=== PATIENT | female | born 1965 ===

== ENCOUNTER 2017-04-23 22:05 | Emergency (ER) | payer OTHER ==
[~2017-04-23] VITALS: Ht 175.3 cm; Wt 70.3 kg
[2017-04-23 22:10] VITALS: Ht 175.3 cm; Wt 70.3 kg
[2017-04-24 00:34] VITALS: BP 151/70
== END 2017-04-24 00:34 | disposition home or self-care (01) ==
LOC: ED 22:05
DX: G89.29 Other chronic pain (principal); M54.5 Low back pain; I10 Essential (primary) hypertension; E11.9 Type 2 diabetes mellitus without complications
CPT/HCPCS: J2270; Q0162

== ENCOUNTER 2017-08-19 08:11 | Emergency (ER) | payer OTHER ==
[~2017-08-19] VITALS: Ht 175.3 cm; Wt 81.6 kg
[2017-08-19 08:21] VITALS: Ht 175.3 cm; Wt 81.6 kg
[2017-08-19 08:38] LABS: BASOPHIL % 0.6 % (0-2); PLATELET COUNT 366 x10^3mcL (130-400); RED CELL DISTRIBUTION WIDTH 15.3 % (11.5-14.5)
[2017-08-19 08:48] LABS: rbc morphology (normal/abnorm) ABNORMAL (NORMAL)
[2017-08-19 09:17] LABS: CALCIUM 9.1 mg/dL (8.5-10.1); CARBON DIOXIDE 24.8 mmol/L (21-32); CHLORIDE SERUM 106 mmol/L (98-107); CREATININE SERUM 0.7 mg/dL (0.6-1.0); GFR1 > 60 mL/min; GLUCOSE SERUM 98 mg/dL (74-106); POTASSIUM SERUM 3.8 mmol/L (3.5-5.1); SODIUM SERUM 141 mmol/L (136-145)
[2017-08-19 09:21] LABS: ALBUMIN 3.7 g/dL (3.4-5.0); ALKALINE PHOSPHATASE 79 U/L (46-116); ALT/SGPT 2 U/L (14-59); AST/SGOT 16 U/L (15-37); BILIRUBIN TOTAL 0.2 mg/dL (0.20-1.00); CHOLESTEROL 142 mg/dL (<200); LIPASE 159 IU/L (73-393); TOTAL PROTEIN, SERUM 7.1 g/dL (6.4-8.2); TRIGLYCERIDES 146 mg/dL (<150)
[2017-08-19 09:36] LABS: CHOLESTEROL/HDL RATIO 2.3; HDL CHOLESTEROL 61 mg/dL (40-60)
[2017-08-19 09:38] LABS: microscopic required? NO
[2017-08-19 09:50] LABS: T3 TOTAL 0.94 ng/mL
[2017-08-19 10:01] LABS: UA SPECIFIC GRAVITY 1.015 (1.005-1.035); urine erythrocyte NEGATIVE (NEGATIVE)
[2017-08-19 10:06] LABS: FREE T4 0.86 ng/dL (0.76-1.46); T4(THYROXINE) 6.1 ug/dL (4.7-13.3)
[2017-08-19 10:26] VITALS: BP 120/64
== END 2017-08-19 10:26 | disposition home or self-care (01) ==
LOC: ED 08:11
PROVIDERS: Specialist
DX: R10.30 Lower abdominal pain, unspecified (principal); R11.0 Nausea; I10 Essential (primary) hypertension; E11.9 Type 2 diabetes mellitus without complications
CPT/HCPCS: 83880; 84439; J1885; J2405; J3010; J7030; Q0092

== ENCOUNTER 2018-11-23 21:20 | Emergency (ER) | payer OTHER ==
[~2018-11-23] VITALS: Ht 175.3 cm; Wt 81.6 kg
[2018-11-23 21:27] VITALS: BP 128/59; Ht 175.3 cm; Wt 81.6 kg
== END 2018-11-23 22:34 | disposition left against medical advice (07) ==
LOC: ED 21:20
DX: Z53.21 Procedure and treatment not carried out due to patient leaving prior to being seen by health care provider (principal)